=== PATIENT | female | born 1960 | race Caucasian/White ===

== ENCOUNTER 2020-05-23 10:34 | Outpatient (CLI) | payer MEDICARE, BC ==
[2020-05-23 18:01] LABS: BASOPHILS % (AUTO) 0.5 %; EOSINOPHILS # (AUTO) 0.2 10^3/uL (0.0-0.7); EOSINOPHILS % (AUTO) 2.1 %; HGB - HEMOGLOBIN 15.4 g/dL (12.0-16.0); LYMPHOCYTES % (AUTO) 25.3 %; MEAN CORPUSCULAR HEMOGLOBIN 29.9 pg (27.0-31.0); MEAN CORPUSCULAR HGB CONC 32.5 g/dL (32.0-36.0); MEAN PLATELET VOLUME 11.8 fL (7.9-10.8); MONOCYTES # (AUTO) 0.6 10^3/uL (0.0-1.0); MONOCYTES % (AUTO) 7.9 %; NEUTROPHILS # (AUTO) 5.1 10^3/uL (1.5-6.6); NEUTROPHILS % (AUTO) 63.8 %; PLT - PLATELET COUNT 303 10^3/uL (130-450); RED BLOOD COUNT 5.15 10^6/uL (4.20-5.40); RED CELL DISTRIBUTION WIDTH 13.6 % (12.0-15.0)
[2020-05-23 18:18] LABS: ALBUMIN 4.2 g/dL (3.2-5.5); ALBUMIN/GLOBULIN RATIO 1.4 (1.0-2.2); ALKALINE PHOSPHATASE 71 IU/L (42-121); ALT ALANINE AMINOTRANSFERASE 17 IU/L (10-60); AST ASPARTATE AMINOTRANSFERASE 16 IU/L (10-42); BILIRUBIN,TOTAL 0.3 mg/dL (0.2-1.0); BUN - BLOOD UREA NITROGEN 19 mg/dL (6-20); CALCIUM 9.5 mg/dL (8.5-10.3); CARBON DIOXIDE - CO2 24 mmol/L (21-32); CHLORIDE 107 mmol/L (101-111); CHOL/HDL RATIO 3.6 (<4.4); CHOLESTEROL 211 mg/dL; CREATININE 0.6 mg/dL (0.4-1.0); GLUCOSE 84 mg/dL (70-100); HDL CHOLESTEROL 58 mg/dL; LDL CHOLESTEROL,CALCULATED 131 mg/dL; LDL/HDL RATIO 2.3 (<4.4); SODIUM 140 mmol/L (135-145); TOTAL PROTEIN 7.2 g/dL (6.7-8.2); VLDL CHOLESTEROL 22 mg/dL
[2020-05-23 18:48] LABS: HEMOGLOBIN A1c% 5.2 % (4.27-6.07)
== END 2020-05-23 23:59 | disposition home or self-care (01) ==
LOC: LAB.WCP 10:34
PROVIDERS: ATTEND Nurse Practitioner
DX: L92.0 Granuloma annulare (principal); R73.01 Impaired fasting glucose; F32.9 Major depressive disorder, single episode, unspecified; I10 Essential (primary) hypertension; Z13.220 Encounter for screening for lipoid disorders
CPT/HCPCS: 36415; 80053; 80061; 83036; 83721; 84443; 85025

== ENCOUNTER 2021-07-20 11:42 | Outpatient (CLI) | payer MEDICARE, BC ==
[2021-07-20 13:48] LABS: BASOPHILS # (AUTO) 0.1 10^3/uL (0.0-0.1); BASOPHILS % (AUTO) 1.1 %; EOSINOPHILS # (AUTO) 0.2 10^3/uL (0.0-0.7); EOSINOPHILS % (AUTO) 2.4 %; HCT - HEMATOCRIT 46.6 % (37.0-47.0); HGB - HEMOGLOBIN 15.4 g/dL (12.0-16.0); LYMPHOCYTES # (AUTO) 1.9 10^3/uL (1.5-3.5); LYMPHOCYTES % (AUTO) 31.1 %; MEAN CORPUSCULAR VOLUME 90.8 fL (81.0-99.0); MONOCYTES # (AUTO) 0.6 10^3/uL (0.0-1.0); MONOCYTES % (AUTO) 9.8 %; NEUTROPHILS # (AUTO) 3.4 10^3/uL (1.5-6.6); NEUTROPHILS % (AUTO) 55.3 %; PLT - PLATELET COUNT 295 10^3/uL (130-450); RED BLOOD COUNT 5.13 10^6/uL (4.20-5.40); RED CELL DISTRIBUTION WIDTH 13.4 % (12.0-15.0); WHITE BLOOD COUNT 6.1 x10^3/uL (4.8-10.8)
[2021-07-20 14:06] LABS: ALBUMIN 4.4 g/dL (3.2-5.5); ALBUMIN/GLOBULIN RATIO 1.6 (1.0-2.2); ALKALINE PHOSPHATASE 61 IU/L (42-121); ALT ALANINE AMINOTRANSFERASE 19 IU/L (10-60); AST ASPARTATE AMINOTRANSFERASE 15 IU/L (10-42); BILIRUBIN,TOTAL 0.6 mg/dL (0.2-1.0); BUN - BLOOD UREA NITROGEN 17 mg/dL (6-20); CALCIUM 9.5 mg/dL (8.5-10.3); CARBON DIOXIDE - CO2 26 mmol/L (21-32); CHLORIDE 104 mmol/L (101-111); CHOLESTEROL 219 mg/dL; CREATININE 0.5 mg/dL (0.4-1.0); GFR - MDRD 126 (>89); GLUCOSE 91 mg/dL (70-100); HDL CHOLESTEROL 73 mg/dL; LDL CHOLESTEROL,CALCULATED 125 mg/dL; LDL/HDL RATIO 1.7 (<4.4); POTASSIUM 4.4 mmol/L (3.5-5.0); SODIUM 139 mmol/L (135-145); TOTAL PROTEIN 7.1 g/dL (6.7-8.2); TRIGLYCERIDES 104 mg/dL; VLDL CHOLESTEROL 21 mg/dL
[2021-07-20 14:17] LABS: THYROID STIMULATING HORMONE 1.37 uIU/mL (0.34-5.60)
[2021-07-20 14:28] LABS: ESTIMATED AVERAGE GLUCOSE 105 mg/dL (70-100); HEMOGLOBIN A1c% 5.3 % (4.27-6.07)
== END 2021-07-20 11:43 | disposition home or self-care (01) ==
LOC: LAB.N 11:42
PROVIDERS: ATTEND Nurse Practitioner Family
DX: Z00.00 Encounter for general adult medical examination without abnormal findings (principal); Z13.220 Encounter for screening for lipoid disorders; Z13.1 Encounter for screening for diabetes mellitus; Z68.32 Body mass index [BMI] 32.0-32.9, adult
CPT/HCPCS: 36415; 80053; 80061; 83036; 83721; 84443; 85025

== ENCOUNTER 2021-10-10 15:19 | Outpatient (CLI) | payer MEDICARE, BC ==
--- NOTE | 2021-10-10 18:58 | DEXA Report ---
PROCEDURE: Dexa Spine and/or Hip INDICATIONS: ASYMPTOMATIC MENOPAUSAL STATE/ OSTEOPOROSIS SCREEN TECHNIQUE: Dual energy x-ray absorptiometry (DXA) was performed on a myZamana System. Regions measur ed are the AP Spine, femoral neck, and if needed forearm. COMPARISON: None. FINDINGS: Lumbar Spine: Bone Mineral Density 1.447 g/cm/cm,T score 2.2, normal Left Hip: Bone Mineral Density 1.088 g/cm/cm, T score 0.6, normal Left Femoral Neck: Bone Mineral Density 0.916 g/cm/cm, T score -0.9, normal (T score greater or equal to -1.0: NORMAL) (T score from -1.1 to -2.4: OSTEOPENIA) (T score less than or equal to -2.5 to: OSTEOPOROSIS) Impression: Bone mineral density is within normal limits. Patients with diagnosis of osteoporosis or osteopenia should have regular bone mineral density assess ment. For those eligible for Medicare, routine testing is allowed once every 2 years. Testing frequ ency can be increased for patients who have rapidly progressing disease or for those who are receivin g medical therapy to restore bone mass. Reviewed by: Lavell Bazzi MD on 10/10/2021 6:56 PM PDT Approved by: Lavell Bazzi MD on 10/10/2021 6:56 PM PDT Station ID: [id number]
== END 2021-10-10 15:20 | disposition home or self-care (01) ==
LOC: DI 15:19
PROVIDERS: ATTEND Nurse Practitioner Family
DX: Z13.820 Encounter for screening for osteoporosis (principal); Z78.0 Asymptomatic menopausal state

== ENCOUNTER 2022-07-29 10:15 | Outpatient (CLI) | payer MEDICARE, BC ==
--- NOTE | 2022-07-29 11:18 | XRAY Report ---
PROCEDURE: Lumbar Spine 2 View INDICATIONS: NEUROPATHY TECHNIQUE: 2 views of the lumbar spine were acquired. COMPARISON: None. FINDINGS: Bones: The most superior nonrib-bearing lumbar vertebral body is referred to as T12, and the lowest l umbar type vertebral body is described as L5. Using this numbering system, there is a 3 mm anterolist hesis of L4 on L5. There is extensive lumbar facet arthropathy and degenerative disc disease with pos terior osteophyte at L4-L5. Canal stenosis is suspected. No vertebral body compression fractures. No suspicious bony lesions. Soft tissues: Overlying bowel gas pattern is normal. No suspicious soft tissue calcifications. IMPRESSION: 1. Extensive lumbar facet arthropathy, as well as degenerative disc disease with associated posterior osteophyte. Suspect canal stenosis. 2. Lumbar spine MRI may be helpful. 3. Due to questions regarding the numbering system of these vertebrae, if the patient ends up being a surgical candidate, careful correlation for current surgical level is necessary. Reviewed by: Owen Shi MD on 07/29/2022 11:17 AM PST Approved by: Owen Shi MD on 07/29/2022 11:17 AM PST Station ID: [id number]
== END 2022-07-29 10:16 | disposition home or self-care (01) ==
LOC: DI 10:15
PROVIDERS: ATTEND Nurse Practitioner
DX: G62.9 Polyneuropathy, unspecified (principal); M51.36 Other intervertebral disc degeneration, lumbar region; M47.816 Spondylosis without myelopathy or radiculopathy, lumbar region; M25.78 Osteophyte, vertebrae

== ENCOUNTER 2022-08-01 14:16 | Emergency (ER) | payer MEDICARE, BC ==
[2022-08-01] MEDS ORDERED: KETOROLAC 60 MG/2 ML VIAL IM STA (15:08)
--- NOTE | 2022-08-01 15:09 | ED Physician Documentation ---
PD HPI BACK PAIN - Stated complaint Stated Complaint: BI LAT LEG NUMBNESS - Chief complaint Chief Complaint: Back Pain - History obtained from History obtained from: Patient - Additional information Additional information: 62-year-old woman with long history of back and neck issues. Had a neck surgery remotely in [facility] but at the same time was also recommended to have back surgery, she does not remember the details but declined at that time. She has chronic back pain but over the last couple weeks has been worse with increasing numbness in both legs and over the last few days she has had bowel incontinence like she does not know that she is pooping and saddle anesthesia. She denies fevers. PD PAST MEDICAL HISTORY - Past Medical History Cardiovascular: Hypertension Psych: Depression, Anxiety - Past Surgical History Past Surgical History: Yes General: Cholecystectomy Ortho: Spine surgery - Present Medications Home Medications: Ambulatory Orders Medication Instructions Recorded Confirmed Erythromycin Base [Erythromycin 3.5 gm LEFTEYE TID #1 tube 12/22/19 Ophthalmic Ointment] Oxycodone HCl/Acetaminophen 1 - 2 each PO Q6H PRN #14 tablet 08/01/22 [Percocet 5-325 mg Tablet] - Allergies Allergies/Adverse Reactions: Allergies Allergy/AdvReac Type Severity Reaction Status Date / Time No Known Drug Allergies Allergy Verified 08/01/22 14:50 - Social History Does the pt smoke?: No Smoking Status: Former smoker Does the pt drink ETOH?: Yes - Immunizations Immunizations are current?: No PD ED PE NORMAL - Vitals Vital signs reviewed: Yes - General General: Alert and oriented X 3, No acute distress - HEENT HEENT: PERRL, EOMI - Neck Neck: Supple, no meningeal sign, No bony TTP - Back Back: No CVA TTP, No spinal TTP - Derm Derm: Normal color, Warm and dry - Extremities Extremities: Other (Diminished sensation throughout the right leg, equal reflexes in both lower extremities though and good strength in flexion and extension at the ankles.) - Neuro Neuro: Alert and oriented X 3, Normal speech Results - Vitals Vitals: Vital Signs - 24 hr 08/01/22 14:43 Temperature 36.8 C Heart Rate 78 Respiratory 16 Rate Blood Pressure 131/92 H O2 Saturation 98 Oxygen O2 Source Room air PD Medical Decision Making - ED course ED course: 62-year-old woman with concerning story for Cauda equina presents for evaluation of same. I had ordered an MRI of the lumbar spine. Several hours later I had the assistant corporate secretary call over to find out why the MRI had not been done and it turns out that there was no MRI coverage this afternoon and I had not been previously notified. I offered to transfer her to a facility capable of Thursday night MRI she declined and will return in the morning. Departure - Departure Disposition: 01 Home, Self Care Clinical Impression: Cauda equina spinal cord injury Qualifiers: Encounter type: initial encounter Qualified Code(s): S34.3XXA - Injury of cauda equina, initial encounter Condition: Good Record reviewed to determine appropriate education?: Yes Instructions: ED Sciatica Prescriptions: Oxycodone HCl/Acetaminophen [Percocet 5-325 mg Tablet] 1 - 2 each PO Q6H PRN #14 tablet PRN Reason: pain Comments: The concern is that you do have a herniated disc that is causing causative colitis syndrome. We tried to get an MRI on you but unfortunately were unable to. I offered to transfer you to a different hospital but you are planning to come back tomorrow at 7 AM for reevaluation. I sent your prescription electronically to [facility] in [place]. I am prescribing a short course of narcotic pain medication for you. These are potentially dangerous and addictive medications that should be used carefully. These medications may constipate you. Take an vfrc-nqf-nkrniho stool softener (docusate) twice daily with plenty of water while taking these medications. If you go 24 hours without a bowel movement, take yoys-uqz-pzenyon miralax, per package instructions. Do not drink or drive while taking these medications. If you received narcotic or sedating medications while in the emergency department, do not drive for 24 hours. Store this medication in a safe, secure place and out of reach of children. It is a violation of federal law to give or sell this medication to another person or to use in a manner other than prescribed. The ED will not refill narcotic prescriptions, including prescriptions lost or stolen. To dispose of unwanted medications: 1. [facility] [address] in [place] has a medication drop box. They accept prescription medications (in pill form) Thursday through Thursday 9:00 a.m. to 5:00 p.m. 2. The [facility] accepts prescription medications (in pill form only) for disposal year round. Call for more information. 3. Contact the [facility] for the next [facility] sponsored prescription drug collection event. , [phone], or [phone]; Note that many narcotic pain relievers also contain Tylenol/acetaminophen. Please ensure that your total dose of acetaminophen from all sources does not exceed 3 g (3000 mg) per day.
[2022-08-01 18:06] VITALS: BP 132/91
== END 2022-08-01 18:05 | disposition home or self-care (01) ==
LOC: ED 14:16
DX: S34.3XXA Injury of cauda equina, initial encounter (principal); X58.XXXA Exposure to other specified factors, initial encounter; I10 Essential (primary) hypertension; Z87.891 Personal history of nicotine dependence
CPT/HCPCS: 96372; 99283; 99284

== ENCOUNTER 2022-08-02 10:39 | Emergency (ER) | payer MEDICARE, BC ==
--- NOTE | 2022-08-02 11:06 | ED Physician Documentation ---
PD HPI BACK PAIN - Stated complaint Stated Complaint: LWR BACK PX/NUMBNESS - Chief complaint Chief Complaint: Back Pain - History obtained from History obtained from: Patient - History of Present Illness Timing - duration: Days, Weeks Timing - details: Gradual onset (she has had low back pain ongoing and worse recently, with numbness left foot. has had some incontinence of urine recently. seen in ER yesterday and was to get mrI but tech had to leave early. returned today for mri. Her symptoms were mild enough that it was felt safe to wait the 15 hours for MRI.), Still present Location: Lower Quality: Pain, Aching Associated symptoms: Numbness (left foot and lower leg laterally), Incontinent of urine. No: Weakness Worsened by: Movement Contributing factors: No: Trauma Recently seen: Emergency Dept Review of Systems Constitutional: denies: Fever, Chills GI: denies: Abdominal Swelling Skin: denies: Rash PD PAST MEDICAL HISTORY - Past Medical History Past Medical History: Yes Cardiovascular: Hypertension Psych: Depression, Anxiety Musculoskeletal: Chronic back pain - Past Surgical History Past Surgical History: Yes General: Cholecystectomy Ortho: Spine surgery - Present Medications Home Medications: Ambulatory Orders Medication Instructions Recorded Confirmed Erythromycin Base [Erythromycin 3.5 gm LEFTEYE TID #1 tube 12/22/19 Ophthalmic Ointment] Oxycodone HCl/Acetaminophen 1 - 2 each PO Q6H PRN #14 tablet 08/01/22 [Percocet 5-325 mg Tablet] oxyCODONE [Roxicodone] 5 mg PO Q6H PRN #15 tablet 08/02/22 tiZANidine [Zanaflex] 4 mg PO Q8H PRN #25 tablet 08/02/22 - Allergies Allergies/Adverse Reactions: Allergies Allergy/AdvReac Type Severity Reaction Status Date / Time No Known Drug Allergies Allergy Verified 08/02/22 10:49 - Social History Does the pt smoke?: No Smoking Status: Never smoker Does the pt drink ETOH?: Yes - Immunizations Immunizations are current?: No PD ED PE NORMAL - Vitals Vital signs reviewed: Yes - General General: Alert and oriented X 3, Well developed/nourished, Other (appears in pain due to low back. Guarding ROM.) - Back Back: Other (tender in lower back muscles. ) - Derm Derm: Normal color, Warm and dry - Extremities Extremities: No edema, No calf tenderness / cord - Neuro Neuro: No motor deficit, Other (decreased sensation lateral left foot and ankle. ) Results - Vitals Vitals: Vital Signs - 24 hr 08/02/22 14:18 Heart Rate 68 Respiratory 18 Rate Blood Pressure 152/98 H O2 Saturation 99 Oxygen O2 Source Room air - Rads (name of study) lumbar MRI Relevant Findings:: Prelim report reviewed, See rad report PD Medical Decision Making - ED course Complexity details: considered differential (mri lumbar showing DDD and moderate foraminal tightness at L4/5 in particular. No central canal stenosis nor encroahcment. ), d/w patient Reviewed Lab Results: MRI showing nerve outlet tightness moderately at L4/5 in particular but mildly throughout. No central canal stenosis nor disc protrusion. Drug Therapy Requiring Monitoring for Toxicity: she was having pain in the back and was concerned about lying in MRI with that. given im meds toradol and dilaudid prior to the procedure, and time enough to be able to ensure no respiratory suppression/altered mental status prior to entry to the MRI. Departure - Departure Disposition: Home, Self Care Clinical Impression: Sciatica, Back pain Condition: Stable Record reviewed to determine appropriate education?: Yes Instructions: ED Sciatica Follow-Up: Nidhi Mcdaniel ARNP [Primary Care Provider] - Prescriptions: oxyCODONE [Roxicodone] 5 mg PO Q6H PRN #15 tablet PRN Reason: Pain tiZANidine [Zanaflex] 4 mg PO Q8H PRN #25 tablet PRN Reason: Spasms Comments: The lumbar MRI showed diffuse arthritis and disc degeneration. Most of the effect on the nerve outlets was mild. The L4/5 disc was more noticeably protruding and did encroach on the nerve outlets warm moderately. None of them look severe per se. Of most importance is there was no sign of narrowing or pressure on the central canal/spinal cord. Your symptoms down to the leg are from some "pinched nerve". This will still need addressing. Follow-up with your primary care as planned. They presumably will refer you to a back specialist for further evaluation. Meanwhile continue with the steroid dosing until finished. At that point then changed to NSAID anti-inflammatory such as ibuprofen or naproxen to 3 tablets twice daily. You could add Tylenol every 4-6 hours if needed for pain and may consider taking it regularly 4 times a day for the next week. Add tizanidine muscle relaxant if needed for spasms and stiffness. Continue with the oxycodone every 6 hours if needed for worse pain. I did write a prescription for some further of these so that you have enough to last to your follow-up on . I sent the prescription to [facility] in [place]. I am prescribing a short course of narcotic pain medication for you. These are potentially dangerous and addictive medications that should be used carefully. These medications may constipate you. Take an doaz-bqd-cucyeym stool softener such as docusate twice daily with plenty of water while taking these medications. If you go 24 hours without a bowel movement, take xxaz-zmt-igzueuw MiraLAX, per package instructions. Do not drink or drive while taking these medications. If you received narcotic or sedating medications while in the emergency department do not drive for 24 hours. Store this medication in a safe, secure place and out of reach of children. It is a violation of federal law to give or sell this medication to another person or to use in a manner other than prescribed. The ED will not refill narcotic prescriptions, including prescriptions lost or stolen. You can dispose of unwanted medications at the [facility]'s office or at several pharmacies such as [facility]. Discharge Date/Time: 08/02/22 14:22
[2022-08-02] MEDS ORDERED: KETOROLAC 30 MG/ML VIAL IM STA (11:12)
[2022-08-02] MEDS ORDERED: HYDROmorphone 1 MG/ML CARPUJECT IM STA (11:13)
--- NOTE | 2022-08-02 13:11 | MRI Report ---
PROCEDURE: LUMBAR SPINE WO INDICATIONS: back pain w new incontinence TECHNIQUE: Noncontrast sagittal T1 spin echo and T2 fast echo, sagittal STIR, axial T1 and T2 fast spin echo thr ough the lumbar spine. In cases with scoliosis, additional coronal T2 fast spin echo may be performe d. COMPARISON: None. FINDINGS: Image quality: Excellent. Alignment and Curvature: There is normal bony alignment. Bone Marrow: Marrow is of normal overall signal. No acute vertebral body compression fractures. Spinal Cord: Conus medullaris terminates at the T12 level. Visualized cord demonstrates normal sign al and size. Paraspinous Soft Tissues: No paravertebral masses. T12-L1: Diffuse disc bulge and disc osteophytes. The foramina and central canal are patent. L1-L2: Diffuse disc bulge and disc osteophytes with facet hypertrophy cause moderate left and mild right foraminal stenosis. The central canal is patent. L2-L3: No disc bulge. The foramina and central canal are patent. L3-L4: Diffuse disc bulge and ligamentum flavum hypertrophy with facet hypertrophy and minimal angel listhesis. The bilateral foramina are patent. L4-L5: Disc space narrowing and diffuse disc bulge. There is facet arthrosis with minimal hypertrop hy. A central annular tear is present. The right foramen has mild stenosis in the left foramen has mo derate stenosis. L5-S1: No disc bulge. The foramina and central canal are patent. IMPRESSION: 1. Multilevel lumbar spondylosis with foraminal stenosis as detailed above. 2. No central canal stenosis. 3. No abnormal cord signal. 4. Please note for the purposes of this study the lowest disc element is designated L5-S1 which shoul d be confirmed prior to any surgical intervention. Reviewed by: Dae Perez on 08/02/2022 12:10 PM [facility] Approved by: Dae Perez on 08/02/2022 12:10 PM [facility] Station ID: [id number]
[2022-08-02 14:18] VITALS: BP 152/98
== END 2022-08-02 14:22 | disposition home or self-care (01) ==
LOC: ED 10:39
DX: M54.40 Lumbago with sciatica, unspecified side (principal); I10 Essential (primary) hypertension
CPT/HCPCS: 72148; 96372; 99283; 99284; J1170

== ENCOUNTER 2022-11-29 12:50 | Outpatient (CLI) | payer MEDICARE, BC ==
--- NOTE | 2022-11-29 20:23 | XRAY Report ---
PROCEDURE: Knee 3 View RT INDICATIONS: PRONATION OF FOOT TECHNIQUE: 3 views of the right knee(s) were acquired. COMPARISON: None. FINDINGS: Bones: Tricompartmental degenerative changes of the right knee with lateral joint space narrowing and osteophytes. No fractures or dislocations. No suspicious bony lesions. Soft tissues: No knee joint effusion. No suspicious soft tissue calcifications or masses. IMPRESSION: 1. No acute bony abnormality. 2. Osteoarthritis of the right knee. Reviewed by: Dae Perez on 11/29/2022 7:21 PM [facility] Approved by: Dae Perez on 11/29/2022 7:21 PM [facility] Station ID: [id number]
== END 2022-11-29 12:51 | disposition home or self-care (01) ==
LOC: DI 12:50
PROVIDERS: ATTEND Nurse Practitioner Family
DX: M25.571 Pain in right ankle and joints of right foot (principal); M21.6X9 Other acquired deformities of unspecified foot; M17.11 Unilateral primary osteoarthritis, right knee

== ENCOUNTER 2022-11-29 12:56 | Outpatient (CLI) | payer MEDICARE, BC ==
--- NOTE | 2022-11-29 20:24 | XRAY Report ---
PROCEDURE: Foot 3 View RT INDICATIONS: PRONATION OF FOOT TECHNIQUE: 3 views of the foot were acquired. COMPARISON: None. FINDINGS: Bones: No fractures or dislocations. No suspicious bony lesions. The foot demonstrates pes planus . There are degenerative changes of the hindfoot. Soft tissues: No suspicious soft tissue calcifications or masses. IMPRESSION: 1. No acute abnormality. 2. Degenerative changes. 3. Pes planus. Reviewed by: Dae Perez on 11/29/2022 7:23 PM [facility] Approved by: Dae Perez on 11/29/2022 7:23 PM [facility] Station ID: [id number]
== END 2022-11-29 12:57 | disposition home or self-care (01) ==
LOC: DI 12:56
PROVIDERS: ATTEND Nurse Practitioner Family
DX: M21.6X9 Other acquired deformities of unspecified foot (principal); M25.571 Pain in right ankle and joints of right foot; M25.561 Pain in right knee; M19.071 Primary osteoarthritis, right ankle and foot; M21.41 Flat foot [pes planus] (acquired), right foot

== ENCOUNTER 2022-11-29 12:59 | Outpatient (CLI) | payer MEDICARE, BC ==
--- NOTE | 2022-11-29 20:26 | XRAY Report ---
PROCEDURE: Ankle 3 View RT INDICATIONS: PRONATION OF FOOT TECHNIQUE: 3 views of the ankle were acquired. COMPARISON: None. FINDINGS: Bones: No fractures or dislocations. Ankle mortise is normally aligned. No suspicious bony lesions . Soft tissues: No tibiotalar joint effusion. Achilles tendon appears normal. IMPRESSION: 1. No acute abnormality excellent 2. Degenerative changes. 3. Pes planus. Reviewed by: Dae Perez on 11/29/2022 7:25 PM [facility] Approved by: Dae Perez on 11/29/2022 7:25 PM [facility] Station ID: [id number]
== END 2022-11-29 13:00 | disposition home or self-care (01) ==
LOC: DI 12:59
PROVIDERS: ATTEND Nurse Practitioner Family
DX: M21.6X9 Other acquired deformities of unspecified foot (principal); M25.561 Pain in right knee; M19.071 Primary osteoarthritis, right ankle and foot; M21.41 Flat foot [pes planus] (acquired), right foot; M17.11 Unilateral primary osteoarthritis, right knee; M25.571 Pain in right ankle and joints of right foot

== ENCOUNTER 2023-01-22 08:00 | Outpatient (CLI) | payer MEDICARE, BC ==
--- NOTE | 2023-01-22 16:09 | XRAY Report ---
PROCEDURE: Knee 2 View RT INDICATIONS: RIGHT KNEE PAIN TECHNIQUE: 2 views of the right knee(s) were acquired. COMPARISON: X-ray right knee, 11/29/2022. FINDINGS: Bones: No fractures or dislocations. No suspicious bony lesions. Moderate osteoarthritic changes, m ost pronounced in the lateral femorotibial compartment. There is moderate to severe joint space narro wing in the lateral femorotibial compartment. Soft tissues: No knee joint effusion. No suspicious soft tissue calcifications or masses. IMPRESSION: Moderate osteoarthritis. Reviewed by: Nayeli Arias MD on 01/22/2023 4:08 PM PDT Approved by: Nayeli Arias MD on 01/22/2023 4:08 PM PDT Station ID: [id number]
== END 2023-01-22 23:59 | disposition home or self-care (01) ==
LOC: DI.WOS 08:00
PROVIDERS: ATTEND Physician Assistant Surgical
DX: M17.11 Unilateral primary osteoarthritis, right knee (principal)

== ENCOUNTER 2023-02-19 08:00 | Outpatient (CLI) | payer MEDICARE, BC ==
--- NOTE | 2023-02-19 14:20 | XRAY Report ---
PROCEDURE: Ankle 3 View RT INDICATIONS: RIGHT ANKLE PAIN TECHNIQUE: 3 views of the ankle were acquired. COMPARISON: None. FINDINGS: Bones: No fractures or dislocations. Ankle mortise is normally aligned. Moderate osteoarthritic ch anges are noted throughout midfoot and hindfoot joints more notably involving subtalar joint and talo navicular joint. No suspicious bony lesions. Well-defined plantar and dorsal calcaneal enthesophyte s are seen. Soft tissues: No tibiotalar joint effusion. Achilles tendon appears normal. IMPRESSION: Moderate midfoot and hindfoot joint osteoarthritis. No acute fracture or dislocation. Well-defined ca lcaneal enthesophytes. Reviewed by: Cameron Caba MD on 02/19/2023 2:19 PM PDT Approved by: Cameron Caba MD on 02/19/2023 2:19 PM PDT Station ID: [id number]
== END 2023-02-19 23:59 | disposition home or self-care (01) ==
LOC: DI.WOS 08:00
PROVIDERS: ATTEND Physician Assistant Surgical
DX: M19.071 Primary osteoarthritis, right ankle and foot (principal); M77.31 Calcaneal spur, right foot; M25.774 Osteophyte, right foot

== ENCOUNTER 2023-02-25 08:32 | Outpatient (CLI) | payer MEDICARE, BC | END 2023-02-25 08:33 | disposition home or self-care (01) | LOC: LAB.N 08:32 | PROVIDERS: ATTEND Nurse Practitioner Family | DX: E55.9 Vitamin D deficiency, unspecified (principal); R53.83 Other fatigue | CPT/HCPCS: 36415; 82306; 82607; 82746 ==

== ENCOUNTER 2023-06-20 11:19 | Outpatient (CLI) | payer MEDICARE, BC ==
[2023-06-20 18:55] LABS: BASOPHILS # (AUTO) 0.1 10^3/uL (0.0-0.1); BASOPHILS % (AUTO) 1.2 %; EOSINOPHILS # (AUTO) 0.2 10^3/uL (0.0-0.7); EOSINOPHILS % (AUTO) 3.3 %; HCT - HEMATOCRIT 48.5 % (37.0-47.0); LYMPHOCYTES # (AUTO) 1.8 10^3/uL (1.5-3.5); LYMPHOCYTES % (AUTO) 30.8 %; MEAN CORPUSCULAR HEMOGLOBIN 28.6 pg (27.0-31.0); MEAN CORPUSCULAR HGB CONC 30.9 g/dL (32.0-36.0); MEAN CORPUSCULAR VOLUME 92.6 fL (81.0-99.0); MEAN PLATELET VOLUME 11.5 fL (7.9-10.8); MONOCYTES # (AUTO) 0.6 10^3/uL (0.0-1.0); MONOCYTES % (AUTO) 10.3 %; NEUTROPHILS # (AUTO) 3.1 10^3/uL (1.5-6.6); NEUTROPHILS % (AUTO) 54.1 %; PLT - PLATELET COUNT 345 10^3/uL (130-450); RED BLOOD COUNT 5.24 10^6/uL (4.20-5.40); RED CELL DISTRIBUTION WIDTH 13.6 % (12.0-15.0); WHITE BLOOD COUNT 5.7 x10^3/uL (4.8-10.8)
== END 2023-06-20 11:20 | disposition home or self-care (01) ==
LOC: LAB.N 11:19
PROVIDERS: ATTEND Nurse Practitioner Family
DX: E55.9 Vitamin D deficiency, unspecified (principal); E53.8 Deficiency of other specified B group vitamins
CPT/HCPCS: 36415; 82306; 82607; 82746; 85025

== ENCOUNTER 2023-10-08 12:05 | Outpatient (CLI) | payer MEDICARE, BC ==
[2023-10-08 17:40] LABS: BASOPHILS # (AUTO) 0.1 10^3/uL (0.0-0.1); BASOPHILS % (AUTO) 0.9 %; EOSINOPHILS # (AUTO) 0.2 10^3/uL (0.0-0.7); HCT - HEMATOCRIT 46.9 % (37.0-47.0); HGB - HEMOGLOBIN 15.2 g/dL (12.0-16.0); LYMPHOCYTES % (AUTO) 25.9 %; MEAN CORPUSCULAR HEMOGLOBIN 29.5 pg (27.0-31.0); MEAN CORPUSCULAR HGB CONC 32.4 g/dL (32.0-36.0); MEAN CORPUSCULAR VOLUME 91.1 fL (81.0-99.0); MEAN PLATELET VOLUME 11.5 fL (7.9-10.8); MONOCYTES # (AUTO) 0.7 10^3/uL (0.0-1.0); MONOCYTES % (AUTO) 9.1 %; NEUTROPHILS # (AUTO) 4.7 10^3/uL (1.5-6.6); NEUTROPHILS % (AUTO) 60.7 %; PLT - PLATELET COUNT 330 10^3/uL (130-450); RED BLOOD COUNT 5.15 10^6/uL (4.20-5.40); RED CELL DISTRIBUTION WIDTH 13.8 % (12.0-15.0); WHITE BLOOD COUNT 7.7 x10^3/uL (4.8-10.8)
[2023-10-08 17:53] LABS: ALBUMIN 4.2 g/dL (3.2-5.5); ALBUMIN/GLOBULIN RATIO 1.6 (1.0-2.2); ALKALINE PHOSPHATASE 78 IU/L (42-121); ALT ALANINE AMINOTRANSFERASE 16 IU/L (10-60); AST ASPARTATE AMINOTRANSFERASE 15 IU/L (10-42); BILIRUBIN,TOTAL 0.6 mg/dL (0.2-1.0); BUN - BLOOD UREA NITROGEN 15 mg/dL (6-20); CALCIUM 9.9 mg/dL (8.5-10.3); CARBON DIOXIDE - CO2 25 mmol/L (21-32); CHLORIDE 108 mmol/L (101-111); CHOL/HDL RATIO 3.2 (<4.4); CHOLESTEROL 204 mg/dL; CREATININE 0.5 mg/dL (0.6-1.3); GFR - MDRD 125 (>89); GLUCOSE 86 mg/dL (74-104); HDL CHOLESTEROL 64 mg/dL; LDL CHOLESTEROL,CALCULATED 111 mg/dL; LDL/HDL RATIO 1.7 (<4.4); POTASSIUM 4.3 mmol/L (3.5-4.5); SODIUM 138 mmol/L (135-145); TOTAL PROTEIN 6.8 g/dL (6.4-8.9); TRIGLYCERIDES 143 mg/dL (48-352); VLDL CHOLESTEROL 29 mg/dL
[2023-10-08 18:07] LABS: THYROID STIMULATING HORMONE 1.43 uIU/mL (0.34-5.60)
[2023-10-08 21:13] LABS: ESTIMATED AVERAGE GLUCOSE 117 mg/dL (70-100); HEMOGLOBIN A1c% 5.7 % (4.27-6.07)
== END 2023-10-08 12:06 | disposition home or self-care (01) ==
LOC: LAB.N 12:05
PROVIDERS: ATTEND Nurse Practitioner Family
DX: I10 Essential (primary) hypertension (principal); Z13.220 Encounter for screening for lipoid disorders; E66.9 Obesity, unspecified; E55.9 Vitamin D deficiency, unspecified; E53.8 Deficiency of other specified B group vitamins; Z13.1 Encounter for screening for diabetes mellitus
CPT/HCPCS: 36415; 80053; 80061; 82306; 82607; 82652; 82746; 83036; 83721; 84443; 85025